=== PATIENT | female | born 1955 | race Caucasian/White ===

== ENCOUNTER → 2020-01-31 | Outpatient (CLI) | payer BC ==
--- NOTE | 2020-01-31 15:14 | US ---
EXAMINATION TYPE: US thyroid st tissue head/neck DATE OF EXAM: 01/31/2020 COMPARISON: NONE CLINICAL HISTORY: R59.9 ENLARGED LYMPH NODES. Bilateral neck palpable areas in submandibular region. Patient states it changes in size. Both areas of concern scanned. At area of bilateral palpables, submandibular gland visualized. No p rominent lymph nodes seen in area. IMPRESSION: No adenopathy identified in the imaged areas. If symptoms persist consider CT.
== END | disposition home or self-care (01) ==
LOC: RADUSWWP 14:47
PROVIDERS: ATTEND Family Medicine
DX: R59.0 Localized enlarged lymph nodes (principal)
CPT/HCPCS: 76536